=== PATIENT | male | born 1950 | race Caucasian/White ===

== ENCOUNTER 2023-11-30 19:39 | Inpatient (IN) | payer MEDICARE, SELFPAY ==
[2023-11-30] VITALS (8 sets, daily range): BP systolic 109–170; BP diastolic 86–118; BMI 33.7; BMI 32.6
[2023-11-30 14:04] LABS: % Basophils 0.4 % (0-2); % Eosinophils 0.5 % (0-6); % Immature Granulocytes 0.2 % (0-0.5); % Lymphocytes 25.6 % (20.5-51.1); % Monocytes 14.9 % (1.7-9.3); % Neutrophils 58.4 % (42.2-75.2); Absolute Lymphocytes 1.5 10^3/uL (1.2-3.4); Absolute Monocytes 0.9 10^3/uL (0.1-0.6); Absolute Neutrophils 3.3 10^3/uL (1.4-6.5); Hematocrit 45.3 % (39.0-52.0); Mean Corp Hgb Conc. 35.3 g/dL (33.0-37.0); Mean Corpuscular Hgb 31.9 pg (27.0-31.0); Mean Corpuscular Volume 90.4 fL (80.0-94.0); Mean Platelet Volume 10.2 fL (7.4-10.4); Nucleated Red Blood Cells % 0 % (-); Platelet Count 133 10^3/uL (130-400); Red Blood Cell Count 5.01 10^6/uL (4.70-6.10); Red Cell Dist. Width 13.6 % (11.5-14.5); White Blood Cell Count 5.7 10^3/uL (4.8-10.8)
[2023-11-30 14:41] LABS: ALT (SGPT) 45 U/L (0-50); AST (SGOT) 51 U/L (17-59); Albumin 3.8 g/dl (3.5-5.0); Alkaline Phosphatase 77 U/L (38-126); Blood Urea Nitrogen 9 mg/dl (9-20); Calcium 9.1 mg/dl (8.4-10.2); Carbon Dioxide 25 mmol/L (22-30); Chloride 103 mmol/L (98-107); Estimated Creatinine Clearance 103 ml/min; Glucose 112 mg/dl (70-99); Potassium 4.3 mmol/L (3.5-5.1); Sodium 136 mmol/L (135-145); Total Bilirubin 0.5 mg/dl (0.2-1.3); Total Protein 6.6 g/dl (6.3-8.2); eGFR > 60.00
--- NOTE | 2023-11-30 14:49 | ED.GENMED ---
History of Present Illness
General
Chief Complaint: Sleep Disturbances
Source: patient
Exam Limitations: none
Time Seen by Provider: 11/30/23 14:25
Travel History
Have you had any contact with someone who has COVID-19?: No
Do you have any symptoms of coronavirus? Fever > 100 degrees, chills, cough, shortness of breath, sore throat, loss of taste or smell, muscle aches, or headache?: No
History of Present Illness
History of Present Illness:
73-year-old male presents for multiple reasons. He states he has been under significant stress recently. His had a debilitating right-sided stroke. He has been taking care of her. He started to get depressed and anxious about this. He
started self-medicating with alcohol and has been drinking significant amount of alcohol daily. He then ran into sleeping issues. He is having trouble sleeping he has not slept in several weeks. He is getting more anxious about this. Family
doctor started him on Lexapro Ativan and Ambien. He states he took 2 Ambien's last night but still was not sleeping. Denies chest pain but does occasionally note palpitations. No shortness of breath but notes ongoing nausea and loose stool. No
other complaints at this time
Phy Exam
Physical Exam
Physical Exam:
General: Well-appearing male no acute respiratory distress
HEENT: Normocephalic atraumatic
Heart: Tachycardic and irregular
Lungs: Clear no wheeze or rales
Neurologic: Alert oriented no facial asymmetry no tremor
Extremities: No cyanosis
Scores
[id number] Score for Afib Stroke Risk
Age in Years (65=0, 65-74=1, >/=75=2): 65-74
Sex (Female=+1): Male
Congestive Heart Failure History (Yes=+1): No
Hypertension History (Yes=+1): No
Stroke/TIA/Thromboembolism History (Yes=+2): No
Vascular Disease History (Yes=+1): No
Diabetes Mellitus (Yes=+1): No
Score: 1
Anticoagulation Recommendations: Consider anticoagulation (as validated in nonvalvular fib)
Withdrawal Assessment of Alcohol
Withdrawal Assessment Completed?: Yes
Nausea and Vomiting: Mild nausea with no vomiting
Tactile Disturbances: None
Tremor: No tremor
Auditory Disturbances: Not present
Paroxysmal Sweats: Beads of sweat obvious on forehead
Visual Disturbances: Mild sensitivity
Anxiety: Moderately anxious, or guarded, so anxiety is inferred
Headache, Fullness in Head: Mild
Agitation: Moderately fidgety and restless
Orientation and clouding of sensorium: Oriented and can do serial additions
Total CIWA Score: 17
Alcohol Withdrawal Medication Recommendation: Equal to MSAS Score 8-11. Lorazepam 1-2mg IV NOW & re-assess q1hr
Course
Orders/Labs/Results
Orders:
Orders
11/30/23 13:37
EKG [Electrocardiogram (*1)] Urgent
Reason for Study: Atrial Fibrillation
11/30/23 13:38
EKG- Treatment ONCE
11/30/23 13:53
Alcohol Urgent
Comprehensive Metabolic Panel Urgent
11/30/23 13:54
CBC/With Diff [Complete Blood Count/With Diff] Urgent
TSH Reflex To Free T4 Urgent
Comment: ADD ON
11/30/23 14:46
Add On- LAB Urgent
Tests Added?: tsh refex to t4, alcohol level
0.9% Sodium Chloride 1000 ml [Nss] 1,000 ml IV BOLUS
11/30/23 14:47
Ondansetron Injectable [Zofran] 4 mg IV NOW STA
11/30/23 18:24
Lorazepam [Ativan] 1 mg IV NOW STA
11/30/23 19:19
Troponin I Urgent
Abnormal Lab Results
11/30/23 11/30/23
13:53 13:54
MCH 31.9 H pg
(27.0-31.0)
Absolute Monos (auto) 0.9 H 10^3/uL
(0.1-0.6)
Monocytes % 14.9 H %
(1.7-9.3)
Glucose 112 H mg/dl
(70-99)
11/30/23 13:54
11/30/23 13:53
Vital Signs
Initial and Last Documented VS:
Initial Vital Signs
Temp Pulse Resp BP Pulse Ox
97.8 F 110 17 170/118 97
11/30/23 13:20 11/30/23 13:20 11/30/23 13:20 11/30/23 13:20 11/30/23 13:20
Last Documented Vital Signs
Temp Pulse Resp BP Pulse Ox
97.8 F 104 16 154/113 97
11/30/23 13:20 11/30/23 18:15 11/30/23 18:15 11/30/23 18:00 11/30/23 17:34
MDM/Problems Addressed
Differential Diagnosis Includes:
. Patient with fatigue, anxiety, insomnia. He has been self-medicating with alcohol. He did make passive suicidal ideas upon direct questioning. He states when you have not slept for 2 months he got a try something. He has no specific plan to
harm himself.
EKG shows rapid atrial fibrillation. This is a new diagnosis for the patient. TSH pending. Could be related to recent alcohol use. Will check electrolytes liver functions. Hydration ordered. Zofran ordered for nausea.
*Critical Care Note
Total Time (30-74mins, 75-104mins- exclusive of procedures): Not Applicable
Update Note
Update Note:
Patient reevaluated, still tachycardic and hypertensive. Still in atrial fibrillation despite fluids. Alcohol assessment score is elevated Ativan ordered. Will admit to hospital for possible alcohol withdrawal in the setting of new diagnosis of
atrial fibrillation
ED Attending Note
-
Portions of this chart may have been created with voice recognition software.� Occasional wrong word or��sound alike� substitutions may have occurred due to the inherent limitations of voice recognition software.
Discharge Plan
Departure
Patient Disposition: Admit
Date of Disposition: 11/30/23
Time of Disposition: 18:36
Admit to: Telemetry
Presentation/result/management discussed w/ accepting MD/DO: Hospitalist
Discharge Problem:
Atrial fibrillation, Alcohol abuse
Prescriptions:
No Action
escitalopram oxalate [Lexapro] 5 mg Tablet
5 mg PO DAILY
lorazepam 0.5 mg Tablet
0.5 mg PO BIDPRN PRN (Reason: ANXIETY)
zolpidem [Ambien] 10 mg Tablet
10 mg PO HSPRN PRN (Reason: SLEEP)
Referrals:
Reese So MD [Family Provider] -
Interventions
Interventions:
*Risk Screen - Suicide Last Done: 11/30/23 13:40
*General Assessment Last Done: 11/30/23 13:38
*Neglect/Abuse Screening Last Done: 11/30/23 13:38
ED- Fall Risk Assessment Last Done: 11/30/23 13:42
*ED COVID-19 Vaccine History Last Done: 11/30/23 13:38
ED-Suicide Risk Assessment Last Done: 11/30/23 15:05
ED- Neurological Assessment Last Done: 11/30/23 13:42
ED-Psychological Assessment Last Done: 11/30/23 13:42
Discharge Date and Time
Print Language: PARAGUAYAN
[2023-11-30 14:58] LABS: Alcohol None Detected
[2023-11-30] MEDS: NSS 1000 IV ×2 (14:58→21:52)
[2023-11-30] MEDS: ZOFRAN 4 MG IV (15:00)
[2023-11-30 15:31] LABS: TSH Reflex To Free T4 1.84 uIU/ml (0.47-4.68)
[2023-11-30] MEDS: ATIVAN 1 MG IV (18:47)
--- NOTE | 2023-11-30 19:20 | HPS.HSE ---
Family Physician
-
Family Physician: Reese So
Chief Complaint
-
Insomnia and anxious
History of Present Illness
HPI
73M with significant social stressors( Ailing of stroke victim for last 2-3 months ) under significant stress with insomnia.
Hence he is self medication with ETOH daily.
He states he took 2 Ambien's last night but still was not sleeping.
Current main concern is insomnia
Last ETOH last night
daily ETOH: 6 cans of beer or / th of vodaka alternate days for last 2 months
No prior HX ETOH WDS
Anxious
Remote HX attempted suicide by gassing
Recently seen by PCP and initiated Lexapro Ativan and Ambien.
At ER noted :
AF with RVR
No prior HX AF
occasional palpitation
denied CP
denied SoB
No HX Thyroid dz
ROS
Denied suicidal and homicidal ideation to me
POS nausea and loose BMs
Denies chest pain but does occasionally note palpitations.
No shortness of breath but notes ongoing nausea and loose stool
Medical History
Past Medical History
Past Medical History: Reports None
Past Surgical History: Reports None
Social History
Tobacco: Non-smoker
Alcohol: Daily
Drug: None
Personal:
Living: With Family
Family History
Family History: Not pertinent
Allergies / Home Medications
Allergies reflects when Allergies were last updated in [facility].
Home Medications with original date entered in [facility]
Allergy/Medication List:
Allergies
Allergy/AdvReac Type Severity Reaction Status Date / Time
No Known Allergies Allergy Verified 11/30/23 13:19
Home Medications
escitalopram oxalate 5 mg tablet (Lexapro) 5 mg PO DAILY 11/30/23
lorazepam 0.5 mg tablet 0.5 mg PO BIDPRN PRN ANXIETY 11/30/23
zolpidem 10 mg tablet (Ambien) 10 mg PO HSPRN PRN SLEEP 11/30/23
Review of Systems
-
Constitutional: Reports No Symptoms
EENT: Reports No Symptoms
Respiratory: Reports No Symptoms
Cardiac: Reports Palpitations
Abdomen/GI: Reports Nausea and Diarrhea (loose BMs ); Denies Vomiting
: Reports No Symptoms
Musculoskeletal: Reports No Symptoms
Skin: Reports No Symptoms
Neurological: Reports No Symptoms
Endocrine: Reports No Symptoms
Hematologic/Lymphatic: Reports No Symptoms
Psych: Reports Depression and Anxiety
Physical Exam
Vital Signs
Vital Signs
Temp Pulse Resp BP Pulse Ox
97.8 F 104 16 154/113 97
11/30/23 13:20 11/30/23 18:15 11/30/23 18:15 11/30/23 18:00 11/30/23 17:34
Physical Exam
General: Well Developed, Well Nourished, No Apparent Distress, Comfortable and Conversant; No Respiratory Distress or Pain
HEENT: NormoCephalic, Anicteric, Moist mucous membranes, Atraumatic and Good Dentition
Respiratory: Clear; No Wheezes, Rales or Rhonchi
Cardiac: S1/S2, Irregular Rhythm and Tachycardia
Breast: Deferred by me
GI: Soft, Non Tender and Non Distended
Rectal: Brown
Genito-urinary: Deferred by me
Musculoskeletal: No Edema
Skin: Warm
Neuro: Awake
Psych: Calm, Intact Judgment/Insight and Anxious; No Suicidal
Laboratory Results
-
11/30/23 13:54
11/30/23 13:53
Laboratory Results
Total Bilirubin 0.5 mg/dl (0.2-1.3) 11/30/23 13:53
AST 51 U/L (17-59) 06/09/24 13:53
ALT 45 U/L (0-50) 11/30/23 13:53
Alkaline Phosphatase 77 U/L (38-126) 11/30/23 13:53
Data Reviewed
-
Medical Tests (Nuc Med, Echo, EKG etc): Report Reviewed by me
Lab Data: Labs Reviewed by me
Impression/Plan
-
Reviewed VS: Afebrile Tachycardia @ 100s Borderline hypertensive 155/113
Withdrawal Assessment of Alcohol report per ER
Nausea and Vomiting: Mild nausea with no vomiting
Tactile Disturbances: None
Tremor: No tremor
Auditory Disturbances: Not present
Paroxysmal Sweats: Beads of sweat obvious on forehead
Visual Disturbances: Mild sensitivity
Anxiety: Moderately anxious, or guarded, so anxiety is inferred
Headache, Fullness in Head: Mild
Agitation: Moderately fidgety and restless
Orientation and clouding of sensorium: Oriented and can do serial additions
Total CIWA Score: 17
Alcohol Withdrawal Medication Recommendation: Equal to MSAS Score 8-11. Lorazepam 1-2mg IV NOW & re-assess q1hr
Data
Unremarkable CBC
Unremarkable BMP & LFTs
nl TSH
NEG ETOH
EKG report
ATRIAL FIBRILLATION WITH RAPID VENTRICULAR RESPONSE
ABNORMAL ECG
NO PREVIOUS ECGS AVAILABLE
[id number]- VASc score 0 - 1.9 % risk of event per yr
NO PRIOR hospitalist admission:
ASSESSMENT & PLAN
New onset Prox AF with RVR in low 100s
Hemodynamically stable
Nl TSH
- [id number]- VASc score 0 - 1.9 % risk of event per yr
- check TPNI
- ECHO in AM
- IV Metoprolol 5mg q6h
- TLM monitor
- CBC card consult
Hi risk for ETOH WDS
Total CIWA Score: 17
HX suggestive of ETOH use disorder ( severe ? )
- Alcohol Withdrawal Medication Recommendation: Equal to MSAS Score 8-11.
- Lorazepam 1-2mg IV NOW & re-assess q1h
- Psych consult
Significant social stressors( Ailing of stroke victim) under significant stress with insomnia.
Anxious
Suspect underlying depression >> adjustment disorder
Remote HX attempted suicide by gassing
HX ancient nut recent Lexapro, Ativan and Ambien are started 2 weeks ago by PCP
- Denied suicidal and homicidal ideation to me
- cont. [employer] Lexapro
- Held Ambien while on IV Ativan PRN
- Psych consult
DVT Px: LMWH
Code: Full code
IP TLM
[2023-11-30 21:09] LABS: INR 0.96; PT 12.5 Sec (11.4-14.6)
[2023-11-30 21:23] LABS: Troponin I < 0.012 ng/ml
[2023-11-30 21:24] LABS: Phosphorus 3.6 mg/dl (2.5-4.5)
[2023-11-30 21:30] LABS: GGTP 56 U/L (15-73)
[2023-11-30] MEDS: DESYREL 25 MG PO (21:55)
[2023-11-30 22:35] LABS: Amphetamines Negative (Negative); Barbiturates Negative (Negative); Benzodiazepines Positive (Negative); Buprenorphine Negative (Negative); Cocaine Negative (Negative); Marijuana Negative (Negative); Methadone Negative (Negative); Methamphetamines Negative (Negative); Opiates Negative (Negative); Phencyclidine Negative (Negative); Tricyclic Antidepressants Negative (Negative)
[2023-11-30 22:52] LABS: Fentanyl, Urine Negative (Negative)
[2023-11-30] MEDS: THIAMINE INJECTION 200 MG IV (23:50)
[2023-11-30] MEDS: AMBIEN 5 MG PO (23:50)
[2023-11-30] MEDS: LOPRESSOR 5 MG IV (23:51)
[2023-12-01] VITALS (7 sets, daily range): BP systolic 137–145; BP diastolic 73–102
--- NOTE | 2023-12-01 01:45 | PTCARENOTE ---
Pt admitted to unit from ED. Pt ambulated self to bed. Pt denies N/V. VS: 97.8, Pulse 82, BP 109/86, Resp Rate 20, and O2 98% on RA. Pt oriented to room with call atkinson in reach. Plan of care ongoing.
[2023-12-01 03:18] LABS: Hematocrit 42.4 % (39.0-52.0); Hemoglobin 14.8 g/dL (13.0-18.0); Mean Corp Hgb Conc. 34.9 g/dL (33.0-37.0); Mean Corpuscular Hgb 31.8 pg (27.0-31.0); Mean Platelet Volume 10.2 fL (7.4-10.4); Platelet Count 110 10^3/uL (130-400); Red Blood Cell Count 4.66 10^6/uL (4.70-6.10); Red Cell Dist. Width 13.7 % (11.5-14.5); White Blood Cell Count 4.2 10^3/uL (4.8-10.8)
[2023-12-01 03:38] LABS: ALT (SGPT) 44 U/L (0-50); AST (SGOT) 50 U/L (17-59); Albumin 3.1 g/dl (3.5-5.0); Alkaline Phosphatase 62 U/L (38-126); Blood Urea Nitrogen 7 mg/dl (9-20); Calcium 8.6 mg/dl (8.4-10.2); Carbon Dioxide 24 mmol/L (22-30); Chloride 106 mmol/L (98-107); Estimated Creatinine Clearance 102 ml/min; Glucose 95 mg/dl (70-99); HDL Cholesterol 51 mg/dl; LDL Cholesterol, Calculated 117 mg/dl; Sodium 137 mmol/L (135-145); Total Bilirubin 0.5 mg/dl (0.2-1.3); Total Cholesterol 184 mg/dl (50-199); Total Protein 5.8 g/dl (6.3-8.2); Triglyceride 83 mg/dl (10-149); Very Low Density Lipoprotein 16 mg/dl (0-30); eGFR > 60.00
[2023-12-01 03:49] LABS: Troponin I < 0.012 ng/ml
[2023-12-01] MEDS: BENADRYL 25 MG PO (04:23)
[2023-12-01] MEDS: LOPRESSOR 5 MG IV (06:01)
[2023-12-01] MEDS: LEXAPRO 5 MG PO (08:14)
[2023-12-01] MEDS: FOLVITE 1 MG PO (08:14)
[2023-12-01] MEDS: THIAMINE INJECTION 200 MG IV ×3 (08:14→22:55)
[2023-12-01 10:04] LABS: Troponin I < 0.012 ng/ml
--- NOTE | 2023-12-01 10:17 | CON.CAR ---
Addendum entered and electronically signed by Randee Messina MD 12/01/23 11:47:
I saw and examined the patient.
The SENIOR ACCOUNT EXECUTIVE's note was reviewed and I agree with the note.
Comment: 73-year-old gentleman with a past medical history of anxiety, insomnia and increased stress as his recently had a stroke presents for evaluation of anxiety. He was noted to be in atrial fibrillation. He has been drinking a lot of
ETOH. He is without cp, palpitations or dizziness. He is irreg irreg, lungs CTA, no le edema. His C2V is a 2---age and htn, will recommend doac, and counseled him regarding etoh cessation. As he is being monitoring for w/d and asymptomatic will
not cardiovert. This will be reconsidered in follow up. His bp is elevated likely w/d and undiagnosed htn based on op records. BB will help with this issue. TTE ordered, will follow.
Original Note:
Consultation
Consultation Request
Date/Time Consultation Requested: 11/30/23 2200
Date/Time Consultation Performed: 12/01/23 1000
Requesting Provider: Sravanthi Crump
Performing Provider: Rehana BUSTILLOS for Dr. Messina
Reason for Consultation: AFIB
Medical History
-
Chief Complaint: anxiety/insomnia
History of Present Illness:
73 y/o male with HLD (not on meds, no recent checking) and anxiety who is here for evaluation of worsened anxiety and insomnia. About 2 months ago, his had a stoke. He started self-medicating with extra ETOH (about 6 pack beer per day). He is
admitted and we are consulted for AFIB, which is a new diagnosis for him.
Past Medical History
Past Medical History: Hypercholesterolemia and Psychiatric (Anxiety)
Social History
Tobacco: Non-Smoker
Alcohol: Daily (6 pack beer)
Personal:
Living: With Family
Family History
Family History: Reviewed & Not Pertinent
Allergies / Home Medications
Allergy/AdvReac Type Severity Reaction Status Date / Time
No Known Allergies Allergy Verified 11/30/23 13:19
�Medication �Instructions �Recorded �Confirmed �Type
escitalopram oxalate 5 mg tablet 5 mg PO DAILY 11/30/23 12/01/23 History
(Lexapro)
lorazepam 0.5 mg tablet 0.5 mg PO BIDPRN PRN ANXIETY 11/30/23 12/01/23 History
zolpidem 10 mg tablet (Ambien) 10 mg PO HSPRN PRN SLEEP 11/30/23 11/30/23 History
Review of Systems
-
History Source: Patient
All other systems: Negative unless noted
Constitutional: Other (insomnia and anxiety)
Physical Exam
Vital Signs
Temp Pulse Resp BP Pulse Ox
99.1 F 82 18 145/102 97
12/01/23 07:00 12/01/23 07:00 12/01/23 07:00 12/01/23 07:00 12/01/23 07:00
Lab Results
12/01/23 03:05
12/01/23 03:05
Troponin I < 0.012 ng/ml 12/01/23 09:00
Physical Exam
General: Well Developed, Well Nourished and No Apparent Distress
HEENT: Normocephalic and Anicteric
Respiratory: Clear and Non Labored Respirations
Cardiac: Irregular Rhythm
Musculoskeletal: No Edema
Skin: Warm and Dry
Neuro: AO x 3
Psych: Calm
Impression / Plan
-
AFIB, new diagnosis:
-type and onset unknown
-TSH WNL
-checking echo now
-transition to PO BB from IV
-[id number] score is 2 for age and HTN (no previous diagnosis of HTN, but BP's severely elevated on arrival, and has been elevated at OP PCP visits to my review). Recommend Eliquis 5 mg PO BID. He denies any bleeding issues or falls.
-eventual CV, but not during ETOH withdrawal period- likely rate-control, anticoagulate, follow-up in office, and arrange as OP
ETOH abuse:
-recommend cessation
-he is on withdrawal protocol
Anxiety, insomnia:
psychiatry is consulted
Data Reviewed
-
EKG: Tracing Personally Visualized and interpreted (AFIB 119 BPM)
Medical Tests (Nuc Med, Echo etc): Other (echo ordered and pending)
Labs: Labs Reviewed by me
[2023-12-01] MEDS: LOPRESSOR 50 MG PO ×2 (11:15→19:39)
[2023-12-01] MEDS: NSS 1000 IV (11:15)
--- NOTE | 2023-12-01 13:38 | CM ---
Patient seen bedside, initial assessment completed. CM received consult for substance use counseling, along with cost of Eliquis 5 mg PO BID. CM spoke with pharmacy, unable to tell cost of medication until script it sent over, TT to Hospitalist
requesting script sent to pharmacy in order to check cost. Patient reports he lives alone currently as his had a stroke and [facility]. Patients home is a two story home, 5 steps to enter. Patient denies DME, VN, or SNF.
Patient reports he has been very anxious and unable to sleep, asking if he will be meeting with Psych. CM confirmed Psych has been consulted. CM offered [facility] to patient in regards to substance use, patient reports he would like to meet with Psych
first. Patient reports he has a son and a sister who are supportive. Patient confirms PCP Dr. Reese So, pharmacy [facility], denies prescription coverage. Patient reports he will feel much better once he gets some sleep. CM will continue to
follow for discharge planning needs.
Plan; home when stable, declining [facility] at this time.
--- NOTE | 2023-12-01 13:44 | W.PN.HOSP.TC ---
Today's Communication/Plan
-
see plan
Assessment / Plan
Assessment / Plan
ASSESSMENT & PLAN
New onset Prox AF with RVR in low 100s
Hemodynamically stable
Nl TSH
-[id number]- VASc score 2, starting Eliquis
-F/U TTE
-oral metoprolol starte
-appreciate cardiology consult
Hi risk for ETOH WDS
Total CIWA Score: 17
HX suggestive of ETOH use disorder ( severe ? )
- Alcohol Withdrawal Medication Recommendation: Equal to MSAS Score 8-11.
- MSAS scoring
- Psych consult
Significant social stressors( Ailing of stroke victim) under significant stress with insomnia.
Anxious
Suspect underlying depression >> adjustment disorder
Remote HX attempted suicide by gassing
Recent Lexapro, Ativan and Ambien are started 2 weeks ago by PCP
- Denied suicidal and homicidal ideation to me
- cont. MECH[employer] DES[employer] Lexapro
- Held Ambien while on IV Ativan PRN
- Psych consult
DVT Px: LMWH
Code: Full code
IP TLM
Anticipated Discharge: 24 - 48 hours
Subjective/Interval History
-
Date of Service: December 01, 2023
slept 3 hours last night
denies tremors
reports very stressful past several months
denies palpitations
Objective Data
-
Labs:
Laboratory Results
12/01/23
03:05
WBC 4.2 L
Hgb 14.8
Hct 42.4
Plt Count 110 L
Sodium 137
Potassium 4.0
Chloride 106
Carbon Dioxide 24
BUN 7 L
Creatinine 0.8
Glucose 95
Calcium 8.6
Total Bilirubin 0.5
AST 50
ALT 44
Alkaline Phosphatase 62
Vital Signs:
Vital Signs
Temp Pulse Resp BP Pulse Ox
98.7 F 86 18 144/92 97
12/01/23 11:00 12/01/23 11:00 12/01/23 11:00 12/01/23 11:15 12/01/23 11:00
I&O
11/30/23 12/01/23 12/02/23
06:59 06:59 06:59
Intake Total 960 / 960
Output Total 425 / 425
Balance 535 / 535
Review of Systems
-
History Source: Patient
All other systems: Reviewed and negative
Physical Exam
-
General: No Apparent Distress
HEENT: PERRLA
Respiratory: Clear to Auscultation; Negative Wheezes
Cardiac: Regular Rhythm and S1/S2
GI: Soft and Nontender
Musculoskeletal: No Edema
Skin: Warm and Dry; Negative Rash
Neuro: AO x 3
Psych: Calm
Data Reviewed
-
Diagnostic Radiology: Report Reviewed by me
Labs: Labs Reviewed by me
--- NOTE | 2023-12-01 16:41 | CS.PSYCHR ---
Consult Summary - Psychiatry
-
Pt is 73 yo male who presented with N/V/D, reportedly not sleeping well since 's stroke 2 months ago, using alcohol to try to manage anxiety and insomnia. Pt was prescribed Lexapro 5 mg and Ambien 10 mg by PCP about 2 weeks ago per pt's
sister. Pt states he was drinking a 6-pack of beer to fall asleep, then taking Ambien when he woke around 3 am. Pt reportedly endorsed SI, but then denied it when asked later. Pt mainly c/o anxiety and insomnia, does not present as depressed. Pt
is alert, oriented, clam, cooperative, with no signs of mood disturbance, no agitation. Pt denies hx of severe alcohol withdrawal symptoms.
Psych Hx: remote hx of depression and suicide attempt; D/A rehab over 30 years ago. Sister reports pt was sober for a number of years until current marriage, began drinking wine with his , who is [place]
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 Sister reported pt and isolated since the pandemic, pt has been neglecting self care/medical care, home reportedly in poor condition
FHx: per sister- father was an angry alcoholic when used corporal punishment
MSE: alert, oriented, calm, cooperative, somewhat unkempt. No agitation, no signs of psychosis. Speech/thought coherent/goal-directed. Insight limited to fair
Imp: Adjustment d/o with Anxiety, insomnia, R/o depression
Alcohol use, unspecified
Rec: Agree with continuing recently started Lexapro, increasing Trazodone to 50 mg HS for insomnia.
Agree with MSAS protocol; consider alcohol rehab
Outpatient management of psychotropic medications when medically cleared
[2023-12-01] MEDS: TYLENOL 650 MG PO (18:57)
[2023-12-01] MEDS: ELIQUIS 5 MG PO (19:39)
[2023-12-01] MEDS: DESYREL 50 MG PO (21:22)
[2023-12-02 03:02] VITALS: BP 125/79
[2023-12-02 07:05] VITALS: BP 135/96
[2023-12-02] MEDS: LEXAPRO 5 MG PO (07:28)
[2023-12-02] MEDS: LOPRESSOR 50 MG PO ×2 (07:28→19:55)
[2023-12-02] MEDS: ELIQUIS 5 MG PO ×2 (07:28→19:54)
[2023-12-02] MEDS: FOLVITE 1 MG PO (07:28)
[2023-12-02] MEDS: THIAMINE INJECTION 200 MG IV ×2 (07:29→15:55)
--- NOTE | 2023-12-02 09:13 | PN.CDI ---
CDI
- -
CDI:
Physician Documentation Request
Admit Date: 11/30/23 19:39
Dear Doctor Ammy,
Clinical Indicators:
Patient admitted with new onset atrial fibrillation & risk for ETOH withdrawal.
Metoprolol IV/PO ordered.
BP trend on admission:
11/30/23
13:20 11/30/23
15:40 11/30/23
16:00
Blood pressure 170/118 153/100 151/103
11/30/23
17:34 11/30/23
18:00
Blood pressure 124/101 154/113
Based on the above, could you clarify in the progress notes, the appropriate diagnosis, if significant, that supports the above abnormalities and additional evaluation, monitoring and/or treatment rendered:
Hypertensive Urgency - B/P is severely elevated (systolic > or = to 180 or diastolic > or = to 110) but there is no associated organ damage. Symptoms may include: headache, shortness of breath, nosebleeds, severe anxiety. Treatment usually consists
of addition to or adjusting of oral medications and does not generally necessitate hospitalization.
Essential primary hypertension
Elevated blood pressure only
Unable to Determine
Use of terms such as suspected, likely, concern for, or probable (associated with a specific diagnosis that is being evaluated, monitored, or treated as if it exists) are acceptable and can be coded in the inpatient setting, when documented at the
time of discharge.
Thank you,
DRE Hammonds RN
CDI Specialist
available via tiger text
Please use your independent medical judgment in providing your response.
--- NOTE | 2023-12-02 09:20 | PN.CDI ---
CDI
- -
CDI:
Physician Documentation Request
Admit Date: 11/30/23 19:39
Dear Doctor Ammy,
Clinical Indicators:
Patient admitted with new onset atrial fibrillation & risk for ETOH withdrawal.
10 PN, 'HX suggestive of ETOH use disorder ( severe ? )'
WBC, RBC, Plt counts:
12/01/23
03:05
WBC 4.2 L
RBC 4.66 L
Plt Count 110 L
Based on the above, could you clarify in the progress notes, the appropriate diagnosis, if significant, that supports the above abnormalities and additional evaluation, monitoring and/or treatment rendered:
Pancytopenia
Abnormal lab values, clinically insignificant
Other, please specify
Use of terms such as suspected, likely, concern for, or probable (associated with a specific diagnosis that is being evaluated, monitored, or treated as if it exists) are acceptable and can be coded in the inpatient setting, when documented at the
time of discharge.
Thank you,
DRE Hammonds RN
CDI Specialist
available via tiger text
Please use your independent medical judgment in providing your response.
--- NOTE | 2023-12-02 09:27 | PN.CDI ---
CDI
- -
CDI:
Physician Documentation Request
Admit Date: 11/30/23 19:39
Dear Doctor Ammy,
Clinical Indicators:
Patient admitted with new onset atrial fibrillation & risk for ETOH withdrawal.
11/30 Cardiology consult, 'His bp is elevated likely w/d and undiagnosed htn based on op records. BB will help with this issue.'
BP trend on admission:
11/30/23
13:20 11/30/23
15:40 11/30/23
16:00
Blood pressure 170/118 153/100 151/103
11/30/23
17:34 11/30/23
18:00
Blood pressure 124/101 154/113
Based on the above, please clarify in the progress notes, the appropriate diagnosis, if significant, that supports the above abnormalities and additional evaluation, monitoring and/or treatment rendered:
Hypertensive Urgency - B/P is severely elevated (systolic > or = to 180 or diastolic > or = to 110) but there is no associated organ damage. Symptoms may include: headache, shortness of breath, nosebleeds, severe anxiety. Treatment usually consists
of addition to or adjusting of oral medications and does not generally necessitate hospitalization.
Essential primary hypertension
Elevated blood pressure only
Other, please specify
Use of terms such as suspected, likely, concern for, or probable (associated with a specific diagnosis that is being evaluated, monitored, or treated as if it exists) are acceptable and can be coded in the inpatient setting, when documented at the
time of discharge.
Thank you,
DRE Hammonds RN
CDI Specialist
available via tiger text
Please use your independent medical judgment in providing your response.
[2023-12-02] MEDS: TYLENOL 650 MG PO (10:43)
--- NOTE | 2023-12-02 10:47 | W.PN.CD ---
Addendum entered and electronically signed by Randee Messina MD 12/02/23 13:11:
I saw and examined the patient.
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
Comment: HE is feeling well without complaint, outside of insomnia. irreg irreg, lungs cta. Discussed the need to continue DOAC. Will rate control and have him follow up in office. May be a candidate for dccv at that time. No further
recommendations, will sign off.
Original Note:
Today's Communication / Plan
-
Continue beta william and apixaban
Impression / Plan
-
BACKGROUND: 73-year-old gentleman with a past medical history of anxiety, insomnia and increased stress as his recently had a stroke presents for evaluation of anxiety. He was noted to be in atrial fibrillation. He has been drinking a lot of
ETOH.
Atrial fibrillation, type unknown, new diagnosis
-Type and onset unknown
-TSH WNL
-Rates improved on metoprolol tartrate 50mg BID, continue
-[id number] score is 2 for (age and HTN)
-Oral anticoagulation: Eliquis 5 mg PO BID. He denies any bleeding issues or falls. First dose 12/01/2023 in evening
-Eventual DCCV, but not during ETOH withdrawal period. Rate-control, anticoagulate, follow-up in office, and arrange as OP.
ETOH abuse
-Recommend cessation
-He is on withdrawal protocol
-Psych following
Anxiety with insomnia, Psych following
SUBJECTIVE:
Denies CP, SOB, and palpitations.
DATA:
Echocardiogram 12/01/2023:
Normal biventricular size and systolic function without regional wall motion
abnormality.
No significant valvular disease.
No prior study available for comparison.
Physical Exam
Vital Signs/Labs
Vital Signs
Temp Pulse Resp BP Pulse Ox
97.7 F 78 12 135/96 97
12/02/23 07:05 12/02/23 07:05 12/02/23 07:05 12/02/23 07:05 12/02/23 07:05
12/01/23 12/02/23 12/03/23
06:59 06:59 06:59
Actual Weight 103.079 kg
12/01/23 03:05
12/01/23 03:05
PT 12.5 Sec (11.4-14.6) 11/30/23 20:54
INR 0.96 11/30/23 20:54
Magnesium 2.0 mg/dl (1.6-2.3) 11/30/23 20:54
Triglycerides 83 mg/dl (10-149) 12/01/23 03:05
LDL Cholesterol, Calc 117 mg/dl 12/01/23 03:05
VLDL Cholesterol, Calc 16 mg/dl (0-30) 12/01/23 03:05
HDL Cholesterol 51 mg/dl 12/01/23 03:05
LAB Results
11/30/23 12/01/23 12/01/23
20:54 02:37 03:05
Troponin I < 0.012 Cancelled < 0.012
12/01/23
09:00
Troponin I < 0.012
Physical Exam
Constitutional: No acute distress and Comfortable
EENT: Anicteric and Moist mucous membranes
Cardiovascular: Pedal edema is absent, Rhythm/rate is irregular and S1S2 is normal
Respiratory: Respiratory effort normal and Lungs clear to auscul.
GI: Soft, Distention absent, Flat, Non tender and Normal bowel sounds
Neuro/Psych: AO x 3
Other: Skin (warm and dry)
Data Reviewed
-
Date of Service: December 02, 2023
Echo: Report Reviewed by me
Labs: Labs Reviewed by me
[2023-12-02 11:12] VITALS: BP 138/101
--- NOTE | 2023-12-02 11:29 | W.PN.UPDATE ---
Update Note
Progress Note Update
Patient seen at bedside, chart reviewed, discussed with staff. Mr. Malagon reports doing 'okay' today. No withdrawal symptoms to report. He slept 'somewhat better' which was about 3 hours. he continues to have a lot of worry regarding his and
her medical issues. We discuss psychotherapy as an option to help him with his current stressors and this is something he will continue. Lexapro is a new medication for him, it has been about 2 weeks. now. Today, he did notice some nausea after
taking morning meds but he did not eat yet. He normally take Lexapro at night (which could possibly cause some sleep disturbances). We discuss trying this in the AM but to take with food. Trazodone was just increased yesterday to 50mg and therefor
do not want to also increase Lexapro as of yet although a higher dose may be required for better anxiety relief.
Impression/Plan: Adjustment disorder with anxiety - continue Lexapro 5mg and Trazodone 50mg HS; Alcohol use disorder - continue with MSAS. Recommended psychotherapy.
--- NOTE | 2023-12-02 11:51 | W.PN.HOSP.TC ---
Addendum entered and electronically signed by Magdaelne Gimenez MD 12/02/23 13:59:
essential primary hypertension
-monitor during withdrawal
-new start metoprolol
pancytopenia 2/2 alcohol use
Original Note:
Today's Communication/Plan
-
increase Trazodone
Assessment / Plan
Assessment / Plan
ASSESSMENT & PLAN
TTE 12/01/23
CONCLUSIONS
Normal biventricular size and systolic function without regional wall motion
abnormality.
No significant valvular disease.
No prior study available for comparison.
Indications:
NEW AF
New onset Prox AF with RVR in low 100s
-[id number]- VASc score 2, starting Eliquis
-TTE Results above, WNL; TSH WNL
-oral metoprolol started
-appreciate cardiology consult
Hi risk for ETOH WDS
Total CIWA Score: 17
HX suggestive of ETOH use disorder ( severe ? )
- Alcohol Withdrawal Medication Recommendation: Equal to MSAS Score 8-11.
- MSAS scoring
- Psych consult appreciated. patient not in active withdrawal
Significant social stressors( Ailing of stroke victim) under significant stress with insomnia.
Anxious
Suspect underlying depression >> adjustment disorder
Remote HX attempted suicide by gassing
Recent Lexapro, Ativan and Ambien are started 2 weeks ago by PCP
- Denied suicidal and homicidal ideation to me
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
- started Trazodone --> increase to 75mg PO qhs
- Psych consult appreciated
DVT Px: LMWH
Code: Full code
IP TLM
Anticipated Discharge: 24 - 48 hours
Subjective/Interval History
-
Date of Service: December 02, 2023
received 3 hours of sleep last night, got woken up with VS and couldn't go back to sleep
Objective Data
-
Vital Signs:
Vital Signs
Temp Pulse Resp BP Pulse Ox
97.7 F 78 12 135/96 97
12/02/23 07:05 12/02/23 07:05 12/02/23 07:05 12/02/23 07:05 12/02/23 07:05
I&O
12/01/23 12/02/23 12/03/23
06:59 06:59 06:59
Intake Total 960 / 960 2100 / 2100
Output Total 425 / 425 500 / 500
Balance 535 / 535 1600 / 1600
Review of Systems
-
History Source: Patient
All other systems: Reviewed and negative
Physical Exam
-
General: No Apparent Distress
HEENT: PERRLA
Respiratory: Clear to Auscultation; Negative Wheezes
Cardiac: Regular Rhythm and S1/S2
GI: Soft and Nontender
Musculoskeletal: No Edema
Skin: Warm and Dry; Negative Rash
Neuro: AO x 3
Psych: Calm
Data Reviewed
-
Diagnostic Radiology: Report Reviewed by me
Labs: Labs Reviewed by me
[2023-12-02 15:58] VITALS: BP 152/95
[2023-12-02] MEDS: ATIVAN 0.5 MG PO (16:08)
[2023-12-02 20:03] VITALS: BP 134/84
[2023-12-02] MEDS: DESYREL 75 MG PO (21:00)
[2023-12-02] MEDS: THIAMINE INJECTION IV (23:05)
[2023-12-03] MEDS: ATIVAN 0.5 MG PO (02:36)
[2023-12-03 07:00] VITALS: BP 124/90
[2023-12-03] MEDS: ELIQUIS 5 MG PO (07:50)
[2023-12-03] MEDS: FOLVITE 1 MG PO (07:50)
[2023-12-03] MEDS: LOPRESSOR 50 MG PO (07:50)
[2023-12-03] MEDS: THIAMINE INJECTION 200 MG IV (07:51)
[2023-12-03] MEDS: TYLENOL 650 MG PO (08:00)
[2023-12-03] MEDS: LEXAPRO 5 MG PO (10:33)
--- NOTE | 2023-12-03 11:19 | W.PN.HOSP.TC ---
Today's Communication/Plan
-
discharge today
Assessment / Plan
Assessment / Plan
ASSESSMENT & PLAN
TTE 12/01/23
CONCLUSIONS
Normal biventricular size and systolic function without regional wall motion
abnormality.
No significant valvular disease.
No prior study available for comparison.
Indications:
NEW AF
New onset Prox AF with RVR in low 100s
-[id number]- VASc score 2, starting Eliquis
-TTE Results above, WNL; TSH WNL
-oral metoprolol started
-appreciate cardiology consult
Hi risk for ETOH WDS
Total CIWA Score: 17
HX suggestive of ETOH use disorder ( severe ? )
- Alcohol Withdrawal Medication Recommendation: Equal to MSAS Score 8-11.
- MSAS scoring
- Psych consult appreciated. patient not in active withdrawal
Significant social stressors( Ailing of stroke victim) under significant stress with insomnia.
Anxious
Suspect underlying depression >> adjustment disorder
Remote HX attempted suicide by gassing
Recent Lexapro, Ativan and Ambien are started 2 weeks ago by PCP
- Denied suicidal and homicidal ideation to me
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
- started Trazodone --> increase to 75mg PO qhs
- Psych consult appreciated
- patient will follow up at [facility]; CBT discussed
DVT Px: LMWH
Code: Full code
IP TLM
Anticipated Discharge: Today
Subjective/Interval History
-
Date of Service: December 03, 2023
he didn't sleep well last night
Objective Data
-
Vital Signs:
Vital Signs
Temp Pulse Resp BP Pulse Ox
97.9 F 83 16 124/90 99
12/03/23 07:00 12/03/23 07:50 12/03/23 07:00 12/03/23 07:50 12/03/23 07:45
I&O
12/02/23 12/03/23 12/04/23
06:59 06:59 06:59
Intake Total 2100 / 2100 360 / 360
Output Total 500 / 500 600 / 600
Balance 1600 / 1600 -240 / -240
Review of Systems
-
History Source: Patient
All other systems: Reviewed and negative
Physical Exam
-
General: No Apparent Distress
HEENT: PERRLA
Respiratory: Clear to Auscultation; Negative Wheezes
Cardiac: Regular Rhythm and S1/S2
GI: Soft and Nontender
Musculoskeletal: No Edema
Skin: Warm and Dry; Negative Rash
Psych: Anxious
Data Reviewed
-
Diagnostic Radiology: Report Reviewed by me
Labs: Labs Reviewed by me
--- NOTE | 2023-12-03 11:31 | W.DS.TRANS ---
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
-
Discharge Instructions:
Discharge Diagnosis/Procedures Insomnia, Anxiety, Alcohol Abuse
Diet Regular
Activity As tolerated
Driving Restrictions No driving after ativan
Bathing Restrictions None
Instructions: Insomnia
Apixaban
Good sleep hygiene
Stand-Alone Forms:
Changes to Home Medications: Yes
Discharge Medications:
DC Medications w/original date entered in [employer]
escitalopram oxalate 5 mg tablet (Lexapro) 5 mg PO DAILY depression/anxiety 11/30/23
lorazepam 0.5 mg tablet 0.5 mg PO BIDPRN PRN ANXIETY 11/30/23
apixaban 5 mg tablet (Eliquis) 5 mg PO BID #60 tabs 12/01/23
metoprolol tartrate 50 mg tablet 50 mg PO BID #60 tabs 12/03/23
thiamine HCl (vitamin B1) 100 mg tablet 100 mg PO DAILY #30 tabs 12/03/23
trazodone 50 mg tablet 75 mg (1.5 x 50 mg) PO HS #45 tabs 12/03/23
Home Medication Changes
You are started on Metoprolol to control heart rate. You are started on Eliquis for stroke prevention.
Completely avoid alcohol. It adds to anxiety and sleeplessness. Do not take Alcohol with Trazodone, Ativan or Ambien.
You are prescribed Trazodone. Stop Ambien. Never take these medications together.
Pending Results: No
--- NOTE | 2023-12-03 11:51 | CM ---
Patient seen at bedside. Patient completed IMM and signed form placed on chart. Patient agreed to talk to [facility] but only if they can call before he leaves at 2pm with his sister. CM will continue to follow for discharge planning needs.
Plan; home with family; [facility] to call
[2023-12-03] MEDS: PREVNAR 20 0.5 ML IM (11:53)
--- NOTE | 2023-12-03 14:29 | W.DCSUMMARY ---
Discharge Summary
Discharge Data
Date of Admission: 11/30/23
Date of Discharge: 12/03/23
-
Pending Results: No
Hospital Course
Discharging Physician : Dr. Magdalene Gimenez
Disposition : Home
Primary care physician : Dr. Reese So
Principal Discharge diagnosis : Atrial Fibrillation, Insomnia, Depression/Anxiety
Hospital Course :
Mr. Mau Malagon is a 73 yo man with hx depression, currently daily alcohol use and insomnia in setting of recent stressor with recovering from CVA 2-3 months ago (currently in rehab) presents to the ER with significant stress and insomnia.
Patient denied SI. Triage vitals significant for pulse 110 with EKG showing atrial fibrillation (new diagnosis). Patient was admitted to medicine with cardiology and psychiatry consulting.
Regarding atrial fibrillation, decision made for rate control. He was started on Metoprolol and Eliquis (CHADS2-Vasc score = 2). TTE with nl EF and no significant valvular disease. TSH WNL. He has follow up with cardiology.
Regarding alcohol abuse, he only required one dose of ativan earlier in hospitalization. He reports willingness to avoid alcohol and is educated that it is making anxiety and insomnia worse.
He was started on Trazodone to help with sleep. Sleep was interrupted in the hospital and at this point we agreed that he would have more healing at home. He is told to stop Ambien. He has follow up with [facility].
Time spent on discharge was 32 minutes.
Important imaging findings :
TTE 12/01/23
CONCLUSIONS
Normal biventricular size and systolic function without regional wall motion
abnormality.
No significant valvular disease.
No prior study available for comparison.
Indications:
NEW AF
Procedure findings :
Discharge Plan
-
Patient Disposition: Home (Routine Discharge)
Discharge Diagnosis/Procedures: Insomnia, Anxiety, Alcohol Abuse
Diet: Regular
Activity: As tolerated
Driving Restrictions: No driving after ativan
Bathing Restrictions: None
Activity Restrictions/Additional Instructions:
You are started on Metoprolol to control heart rate. You are started on Eliquis for stroke prevention.
Completely avoid alcohol. It adds to anxiety and sleeplessness. Do not take Alcohol with Trazodone, Ativan or Ambien.
You are prescribed Trazodone. Stop Ambien. Never take these medications together.
Try listening to white or brown noise in evenings to help calm the mind and drown out other noise.
I encourage you to trial a meditation mathieu (Headspace or Calm). Even 10 minutes of breathing exercises will go a long way. It is completely normal for your mind to wander when first starting to meditate but the practice will still be helpful.
Follow up with Magdalene BUSTILLOS for therapy.
Instructions: Insomnia, Apixaban, Good sleep hygiene
Referrals:
Magdalene Garrett CRNP [Specified Professional Personl] - in one week
Soledad Frank CRNP [Specified Professional Personl] - 12/17/23 9:20 am
Reese So MD [Family Provider] - in less than 1 week
Prescriptions:
New
Eliquis 5 mg Tablet
5 mg PO BID Qty: 60 0RF
thiamine HCl (vitamin B1) 100 mg Tablet
100 mg PO DAILY Qty: 30 0RF
metoprolol tartrate 50 mg Tablet
50 mg PO BID Qty: 60 0RF
trazodone 50 mg tablet
75 mg PO HS Qty: 45 0RF
Rx Instructions:
Take 1.5 tablets in evenings. This dose may be increased as outpatient.
Continued
escitalopram oxalate [Lexapro] 5 mg Tablet
5 mg PO DAILY
lorazepam 0.5 mg Tablet
0.5 mg PO BIDPRN PRN (Reason: ANXIETY)
Discontinued
zolpidem [Ambien] 10 mg Tablet
10 mg PO HSPRN PRN (Reason: SLEEP)
Discharge Orders:
Discharge Patient (As Directed); Ordered 12/03/23
Ordered By: Magdalene Gimenez
Discharge Date and Time
Print Language: SETSWANA
[2023-12-03 14:30] VITALS: BP 132/82
== END 2023-12-03 14:43 | disposition home or self-care (01) | DRG 309 ==
LOC: 4 WEST ACU 19:39
PROVIDERS: Emergency Medicine; ADMITTING PHYSICIAN Internal Medicine; ATTENDING PHYSICIAN Student in an Organized Health Care Education/Training Program; CONSULT PHYSICIAN Internal Medicine Cardiovascular Disease; CONSULT PHYSICIAN Psychiatry & Neurology Psychiatry; EMERGENCY PHYSICIAN Emergency Medicine; FAMILY PHYSICIAN Family Medicine
DX: I48.91 Unspecified atrial fibrillation (principal); D61.818 Other pancytopenia; F10.139 Alcohol abuse with withdrawal, unspecified; F43.22 Adjustment disorder with anxiety; I10 Essential (primary) hypertension; G47.00 Insomnia, unspecified
CPT/HCPCS: 80053; 80061; 80306; 80307; 82077; 82977; 83735; 84100; 84443; 84484; 85025; 85027; 85610; 90677; 93005; 93306; 96361; 96374; 96375; 99285; G0009

== ENCOUNTER 2023-12-24 07:11 | Day surgery (SDC) | payer MEDICARE, SELFPAY ==
--- NOTE | 2023-12-24 08:39 | ITS.CL.CARDI ---
Service Trainer - Cardioversion
Cardioversion
Procedure Report:
Date of Procedure: 12/24/23.
Procedure: Cardioversion.
Indication: Symptomatic atrial fibrillation.
Performing Physician: Natalie Messina MD
Technique: The patient was brought to the holding area. Signed informed consent was obtained. A time out was called and performed. The patient was sedated by a member of the anesthesia service. Anticoagulation status was reviewed and was
appropriate. R-2 pads were placed anteriorly and posteriorly. A 200 J synchronized biphasic shock restored normal sinus rhythm without significant bradycardia. There were no complications.
Conclusion: Uncomplicated cardioversion from atrial fibrillation to sinus rhythm.
Recommendation: Routine post cardioversion care. 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
== END 2023-12-24 09:45 | disposition home or self-care (01) ==
LOC: CATH 07:11
PROVIDERS: ATTENDING PHYSICIAN Internal Medicine Cardiovascular Disease; FAMILY PHYSICIAN Family Medicine
DX: I48.0 Paroxysmal atrial fibrillation (principal); Z79.01 Long term (current) use of anticoagulants; Z79.82 Long term (current) use of aspirin; I10 Essential (primary) hypertension; F41.9 Anxiety disorder, unspecified
CPT/HCPCS: 93312; 93320; 93325; 92960; 93005

== ENCOUNTER → 2024-03-18 09:00 | Outpatient (REF) | payer MEDICARE, SELFPAY ==
[2024-03-18 13:39] LABS: % Basophils 0.7 % (0-2); % Eosinophils 1.8 % (0-6); % Immature Granulocytes 0.3 % (0-0.5); % Lymphocytes 26.4 % (20.5-51.1); % Monocytes 8.1 % (1.7-9.3); % Neutrophils 62.7 % (42.2-75.2); Absolute Basophils 0.1 10^3/uL (0-0.2); Absolute Eosinophils 0.1 10^3/uL (0-0.7); Absolute Monocytes 0.6 10^3/uL (0.1-0.6); Absolute Neutrophils 4.8 10^3/uL (1.4-6.5); Hematocrit 46.5 % (39.0-52.0); Hemoglobin 15.8 g/dL (13.0-18.0); Mean Corpuscular Hgb 29.9 pg (27.0-31.0); Mean Corpuscular Volume 88.1 fL (80.0-94.0); Mean Platelet Volume 10.8 fL (7.4-10.4); Nucleated Red Blood Cells % 0 % (-); Platelet Count 157 10^3/uL (130-400); Red Blood Cell Count 5.28 10^6/uL (4.70-6.10); Red Cell Dist. Width 12.7 % (11.5-14.5); White Blood Cell Count 7.6 10^3/uL (4.8-10.8)
[2024-03-18 13:53] LABS: ALT (SGPT) 25 U/L (0-50); AST (SGOT) 31 U/L (17-59); Albumin 4.5 g/dl (3.5-5.0); Alkaline Phosphatase 71 U/L (38-126); Blood Urea Nitrogen 16 mg/dl (9-20); Carbon Dioxide 25 mmol/L (22-30); Chloride 103 mmol/L (98-107); Glucose 79 mg/dl (70-99); Potassium 4.8 mmol/L (3.5-5.1); Sodium 140 mmol/L (135-145); Total Bilirubin 0.5 mg/dl (0.2-1.3); Total Protein 7.3 g/dl (6.3-8.2); eGFR > 60.00
== END ==
LOC: SDSPAT 09:00
PROVIDERS: ATTENDING PHYSICIAN Internal Medicine Cardiovascular Disease; FAMILY PHYSICIAN Family Medicine; OTHER PHYSICIAN Internal Medicine Cardiovascular Disease
DX: I48.19 Other persistent atrial fibrillation (principal); I36.1 Nonrheumatic tricuspid (valve) insufficiency
CPT/HCPCS: 36415; 75572; 80053; 85025; 93005; Q9967

== ENCOUNTER 2024-03-29 07:34 | Day surgery (SDC) | payer MEDICARE, SELFPAY ==
[2024-03-18 13:06] VITALS: BMI 32.7
[2024-03-29] VITALS (16 sets, daily range): BP systolic 73–153; BP diastolic 54–94
[2024-03-29] MEDS: NSS 500 IV (08:21)
[2024-03-29 12:04] LABS: ACT-LR - POC 366 Seconds (116-155)
[2024-03-29 12:24] LABS: ACT-LR - POC 332 Seconds (116-155)
[2024-03-29 12:41] LABS: ACT-LR - POC 348 Seconds (116-155)
--- NOTE | 2024-03-29 13:17 | ITS.CL.ABL ---
Director Of Managed Services - Ablation
Ablation
Procedure Report:
AFIB ablation:
Mr. Malagon is a very pleasant 73 yr old gentleman with symptomatic persistent AF, is recommended for atrial fibrillation ablation.
Date of the Procedure:
03/29/2024
Indications:
Persistent atrial fibrillation
Pre-Operative Diagnosis:
Persistent atrial fibrillation
Post-Operative Diagnosis:
Persistent atrial fibrillation
Procedure Performed:
Atrial fibrillation ablation with Pulsed-Field approach for pulmonary vein isolation
Performing Physician:
Erin Jensen MD
Assistants:
EP staff
Anesthesia:
See anesthesia records
Detailed Description of the Procedure:
Written informed consent was obtained from the patient after a full explanation of the risks and benefits of the procedure including the risks of sedation and anesthesia.
The patient was brought to the electrophysiology laboratory in stable condition in fasting state. Continuous electrocardiographic and hemodynamic monitoring was initiated.
The initial rhythm was atrial fibrillation.
The procedure site was meticulously prepared with surgical scrub and allowed to dry with no pooling. Sterile draping was applied to cover the procedure site. The image intensifier was draped with sterile bag and positioned over the patient. After
infusion of local anesthetic, vascular access was obtained under ultrasound guidance and sheaths were placed over guide wire as detailed below.
Sheath and Catheter Placement:
The following catheters / sheaths were placed
Sheaths:
��������� 17Fr steerable sheath (Faradrive�, [employer]) in right femoral
��������� 9Fr in right femoral vein
��������� 7Fr in right femoral vein
Catheters:
��������� JOEY HD Grid mapping catheter � at locations of RA, LA
��������� Farawave� PFA catheter
��������� ICE catheter -AcuNav - at locations of RA, SVC, and RV.
��������� Decapolar Bard catheter in RA and CS
Intracardiac ECHO:
An 8-Jamaican AcuNav intracardiac ECHO (ICE) probe was advanced through the 9-Jamaican sheath in the right femoral vein into the right atrium under fluoroscopic and ICE ultrasound image guidance and a baseline ECHO study was performed. The left atrial
size was dilated. There was moderate tricuspid regurgitation. The aortic valve was grossly normal. There was normal left ventricular systolic functions. There is no pericardial effusion. All the four veins were identified and has flow identified.
There was good flow noted in the JOSE.
During the procedure, ICE was used for monitoring of complications, guidance of trans-septal puncture, monitor the catheter position and tracking ablation lesions. No change in the pericardial space noted throughout the procedure.
Trans-septal Puncture:
Heparin was initiated and infused to maintain appropriate ACT. A pigtail guidewire was advanced through the 8-Jamaican sheath in the right femoral vein into the superior vena cava under fluoroscopic and ICE guidance. The 9-Jamaican sheath was exchanged
for a Faradrive sheath which was advanced into the superior vena cava. A transseptal RF pigtail via Faradrive connect system was utilized to perform the trans-septal puncture. The apparatus was withdrawn until it was in contact with the fossa
ovalis. The position was adjusted based on fluoroscopy and ultrasound images from ICE. Under fluoroscopic, hemodynamic and ICE ultrasound guidance, left atrium was cannulated by applying RF energy. Once atrial septum was cannulated, the pigtail wire
was advanced through the needle into the left atrium. The guide wire was advanced into the left superior pulmonary vein. Both the sheath and the dilator was advanced into the left atrium. The dilator with the needle was withdrawn. Blood was
aspirated from the Faradrive sheath and arterial blood confirmed. The sheath was flushed. Saline injection noted into the left atrium on ICE. The mapping catheter was advanced in the sheath into the left pulmonary vein. Left atrial pressure was
measured.
3D Electroanatomic Mapping:
Using the HD Grid catheter advanced through sheath into the left atrium, an electroanatomic map (EAM) of the left atrium was created using [employer] mapping system. The map was used for localization of catheter position and tacking of ablation
lesions.
The EAM of the left atrium showed 4 pulmonary veins with all 4 veins electrically connected to the body the LA. It showed only scattered areas of low voltage on the posterior and anterior wall of the LA in AF but had good signals in sinus rhythm.
The LA was dilated in size.
Following the EAM, preparation were made for ablation.
Ablation:
Ablation # 1: Pulmonary vein Isolation:
Glycopyrrolate 0.2 mg was given prior to the placement of ablation. Using [employer] pulsed wave ablation system, pulmonary vein isolation was achieved. First the ablation catheter was placed in the LSPV and ostial ablation lesions were performed in a
counter clock cervantes approach all around the PV ostium circumferentially. Then the catheter was placed on the antral location and multiple ablation lesions were placed circumferentially on the antrum of the vein.
In the similar fashion, the LIPV were isolated.
Then the catheter was moved to right sided veins. The ostial and antral ablations were placed as noted above.
Patient remained in atrial fibrillation.
Cardioversion:
Once the PV isolation was achieved, decision was made to proceed with cardioversion. A 200 J biphasic shock was applied on the clayton posterior Zoll patches and sinus rhythm was achieved. No significant pause noted.
EPS and Confirmation of the PVI and bidirectional block:
Following achievement of entrance block at the pulmonary veins, pacing from the HD catheter in each of the four veins at 10 milliamps for 2 milliseconds showed entrance and exit block. All PVI were rechecked at the end of the case and remained
isolated. Entrance and exit block were demonstrated in all veins.
Post ablation Electroanatomic mapping:
Once ablation was completed, the EAM of the LA was done again in sinus rhythm with excellent demarcation of LA myocardium and isolated antral tissue. There was no significant scarring noted in the LA.
The JOSE had healthy signals and was not isolated.
Procedure End
ICE study was done again that showed no epicardial accumulation. No complications noted.
Following the completion of the EP study, catheters were removed. Protamine 40 mg was given at the end of the procedure and ACT was checked repeatedly. The sheaths were removed and hemostasis achieved with VASCADE and manual compression after
acceptable ACT is achieved.
Left atrial Pressure:
Mean LA pressure was 6mmHg
Estimated Blood loss:
<10 cc
Specimens Removed:
None.
Implants / Devices:
None
Urine output:
None
Packs / Drains/ Tubes:
None
Instrument / Sponge Count Correct:
Yes
Complications of the Procedure:
None
Condition of Patient at Time of Transfer:
Hemodynamically stable with no neurological or vascular compromise.
Summary:
Successful atrial fibrillation ablation with Pulsed Field approach for pulmonary vein isolation.
Figures from the Procedure:
Figure 1: The electroanatomic mapping (EAM) of the left atrium with bipolar voltage (purple indicates normal electrical activity with oliveira as no myocardial muscle electric activity indicating a line of block or scar.
[2024-03-29] MEDS: ANESTHETIC LOZENGE 1 LOZENGE PO (13:51)
[2024-03-29] MEDS: TYLENOL 650 MG PO (14:02)
--- NOTE | 2024-03-29 16:49 | W.PN.UPDATE ---
Update Note
Progress Note Update
Pt seen post PFA. Right groin site with vascade closure, no ht/bleeding. OOB ambulating, urinating without difficulty. Post EKG NSR 60s, no acute changes. Resume eliquis tonight, continue other meds as before. Folowup at [facility] as scheduled. Home today
if groin site/tele remain stable.
== END 2024-03-29 17:05 | disposition home or self-care (01) ==
LOC: CATH 07:34
PROVIDERS: ATTENDING PHYSICIAN Internal Medicine Cardiovascular Disease; FAMILY PHYSICIAN Family Medicine; OTHER PHYSICIAN Internal Medicine Cardiovascular Disease
DX: I48.19 Other persistent atrial fibrillation (principal); I10 Essential (primary) hypertension; F41.9 Anxiety disorder, unspecified; Z87.891 Personal history of nicotine dependence; E66.9 Obesity, unspecified; Z68.32 Body mass index [BMI] 32.0-32.9, adult; Z79.01 Long term (current) use of anticoagulants
CPT/HCPCS: C1732; C1894; C1730; C1892; C1759; 85347; 86850; 86900; 86901; 93005; 93656; C1733; C1760; C1766

== ENCOUNTER 2024-04-29 11:04 | Emergency (ER) | payer MEDICARE, SELFPAY ==
[2024-04-29 11:15] VITALS: BP 159/89
[2024-04-29 11:21] VITALS: BP 146/104
[2024-04-29 12:00] VITALS: BP 138/94
[2024-04-29] MEDS: NSS 1000 IV (12:15)
[2024-04-29 12:25] LABS: % Basophils 0.3 % (0-2); % Immature Granulocytes 0.5 % (0-0.5); % Lymphocytes 13.8 % (20.5-51.1); % Monocytes 7.4 % (1.7-9.3); Absolute Eosinophils 0.2 10^3/uL (0-0.7); Absolute Immature Granulocytes 0.1 10^3/uL (0-0.05); Absolute Lymphocytes 1.6 10^3/uL (1.2-3.4); Absolute Monocytes 0.9 10^3/uL (0.1-0.6); Absolute Neutrophils 8.9 10^3/uL (1.4-6.5); Hematocrit 48.3 % (39.0-52.0); Hemoglobin 16.5 g/dL (13.0-18.0); Mean Corp Hgb Conc. 34.2 g/dL (33.0-37.0); Mean Corpuscular Volume 87.8 fL (80.0-94.0); Mean Platelet Volume 11.1 fL (7.4-10.4); Nucleated Red Blood Cells % 0 % (-); Platelet Count 150 10^3/uL (130-400); Red Cell Dist. Width 13.8 % (11.5-14.5); White Blood Cell Count 11.8 10^3/uL (4.8-10.8)
[2024-04-29 12:44] LABS: ALT (SGPT) 36 U/L (0-50); AST (SGOT) 49 U/L (17-59); Albumin 4.1 g/dl (3.5-5.0); Alkaline Phosphatase 73 U/L (38-126); Blood Urea Nitrogen 16 mg/dl (9-20); Calcium 9.9 mg/dl (8.4-10.2); Carbon Dioxide 22 mmol/L (22-30); Chloride 104 mmol/L (98-107); Glucose 99 mg/dl (70-99); Potassium 4.6 mmol/L (3.5-5.1); Sodium 137 mmol/L (135-145); Total Bilirubin 0.7 mg/dl (0.2-1.3); Total Protein 7.1 g/dl (6.3-8.2); eGFR > 60.00
[2024-04-29 12:46] LABS: NT-proBNP 2040 pg/ml
[2024-04-29 13:00] VITALS: BP 153/101
[2024-04-29 13:09] LABS: TSH Reflex To Free T4 1.75 uIU/ml (0.47-4.68)
--- NOTE | 2024-04-29 15:56 | ED.GENMED ---
History of Present Illness
General
Chief Complaint: Heart Rate Problem
Source: patient
Exam Limitations: none
Time Seen by Provider: 04/29/24 11:22
History of Present Illness
History of Present Illness:
73-year-old male with history of paroxysmal atrial fibrillation presents with complaints of being in A-fib for the past 3 to 4 days. He had a cardiac ablation on March 29 of this year. His recently and he was self-medicating with
alcohol. Last week for 5 days he was on an alcohol binge. He stopped drinking 4 days ago. Since then he is felt like he has been in A-fib. He is on Eliquis. His doses of the Eliquis have changed. He cut his dose in half as he thought he did
not need it anymore. He is certain he has not missed any doses of the Eliquis. He denies chest pain. No other this time. Patient was screened positive for potential suicidal thoughts at triage. He is denying any thoughts of harming himself or
plan to do so. He is accompanied by his son.
Phy Exam
Physical Exam
Physical Exam:
General: Well-appearing male no acute respiratory distress
HEENT: Normocephalic atraumatic
Heart: Irregular rate and rhythm
Lungs: Clear no wheeze
Extremities: No cyanosis or edema
Skin: Warm no rash
Course
Orders/Labs/Results
Orders:
Orders
04/29/24 11:05
EKG [Electrocardiogram (*1)] Urgent
Reason for Study: Tachycardia
04/29/24 11:06
EKG- Treatment ONCE
04/29/24 11:55
0.9% Sodium Chloride 1000 ml [Nss] 1,000 ml IV BOLUS
04/29/24 12:10
Complete Blood Count/With Diff Urgent
Comprehensive Metabolic Panel Urgent
NT-proBNP Urgent
TSH Reflex To Free T4 Urgent
04/29/24 12:50
CR Chest - 2 Views Urgent
Comment:
Reason For Exam: SOB
04/29/24 12:51
Crisis Consult Urgent
Reason for Consult: SI
Abnormal Lab Results
04/29/24
12:10
WBC 11.8 H 10^3/uL
(4.8-10.8)
MPV 11.1 H fL
(7.4-10.4)
Abs Immat Gran (auto) 0.1 H 10^3/uL
(0-0.05)
Absolute Neuts (auto) 8.9 H 10^3/uL
(1.4-6.5)
Absolute Monos (auto) 0.9 H 10^3/uL
(0.1-0.6)
Neutrophils % 76.0 H %
(42.2-75.2)
Lymphocytes % 13.8 L %
(20.5-51.1)
04/29/24 12:10
04/29/24 12:10
Vital Signs
Initial and Last Documented VS:
Initial Vital Signs
Temp Pulse Resp Pulse Ox
98.3 F 80 19 97
04/29/24 11:10 04/29/24 11:10 04/29/24 11:10 04/29/24 11:10
Last Documented Vital Signs
Temp Pulse Resp BP Pulse Ox
98.3 F 85 15 153/101 97
04/29/24 11:10 04/29/24 15:15 04/29/24 15:15 04/29/24 13:00 04/29/24 15:15
MDM/Problems Addressed
Differential Diagnosis Includes:
A-fib. Patient is currently rate controlled. No chest pain. Chest x-ray clear. Labs reviewed. Does not appear volume overloaded. Discussed case with cardiology. At this point patient would not be a good cardioversion candidate as he is stable
and with rate controlled and given the recent alcohol binge and potential misuse of the Eliquis, it would not be reasonable for us to cardiovert urgently. Cardiology also recommended him staying off the alcohol as the longer he is off the alcohol
the more chances that he has going back into a sinus rhythm. He was hydrated here with saline. Discussed case with crisis team as well they evaluated him. At this point the patient is not in any danger of harming himself or others. He is stable
for discharge
*Critical Care Note
Total Time (30-74mins, 75-104mins- exclusive of procedures): Not Applicable
ED Attending Note
-
Portions of this chart may have been created with voice recognition software.� Occasional wrong word or��sound alike� substitutions may have occurred due to the inherent limitations of voice recognition software.
Discharge Plan
Departure
Patient Disposition: Home (Routine Discharge)
Date of Disposition: 04/29/24
Time of Disposition: 16:00
Patient with high blood pressure during this ER visit?: No
Discharge Problem:
Paroxysmal atrial fibrillation
Instructions: Atrial Fibrillation (DC)
Prescriptions:
No Action
escitalopram oxalate [Lexapro] 5 mg Tablet
5 mg PO DAILY
lorazepam 0.5 mg Tablet
0.5 mg PO HS
Eliquis 5 mg Tablet
5 mg PO BID Qty: 60 0RF
metoprolol tartrate 50 mg Tablet
50 mg PO BID Qty: 60 0RF
trazodone 50 mg tablet
100 mg PO HS
Referrals:
Reese So MD [Family Provider] -
Activity Restrictions/Additional Instructions:
Avoid alcohol. Seek treatment for your alcohol issues as discussed with Lila elizabeth. Please follow-up with cardiology. They should be contacting you for sooner appointment. Return if needed otherwise
Interventions
Interventions:
*Risk Screen - Suicide Last Done: 04/29/24 11:10
*General Assessment Last Done: 04/29/24 11:10
*Neglect/Abuse Screening Last Done: 04/29/24 11:10
ED- Cardiac Assessment Last Done: 04/29/24 12:19
ED- Pulmonary Assessment Last Done: 04/29/24 12:19
Discharge Date and Time
Print Language: [id number]
[2024-04-29 16:20] VITALS: BP 159/110
== END 2024-04-29 16:33 | disposition home or self-care (01) ==
LOC: EMR 11:04
PROVIDERS: Physician Assistant; EMERGENCY PHYSICIAN Student in an Organized Health Care Education/Training Program; FAMILY PHYSICIAN Family Medicine
DX: I48.0 Paroxysmal atrial fibrillation (principal); Z79.01 Long term (current) use of anticoagulants
CPT/HCPCS: 99283; 96360; 71046; 80053; 83880; 84443; 85025; 93005

== ENCOUNTER 2024-05-19 07:03 | Day surgery (SDC) | payer MEDICARE, SELFPAY | END 2024-05-19 08:02 | disposition home or self-care (01) | LOC: CATH 07:03 | PROVIDERS: ATTENDING PHYSICIAN Internal Medicine Cardiovascular Disease; FAMILY PHYSICIAN Family Medicine; OTHER PHYSICIAN Internal Medicine Cardiovascular Disease | DX: I48.0 Paroxysmal atrial fibrillation (principal); Z53.09 Procedure and treatment not carried out because of other contraindication; I10 Essential (primary) hypertension; Z87.891 Personal history of nicotine dependence | CPT/HCPCS: 93005 ==